=== PATIENT | female | born 1990 | race Caucasian/White ===

== ENCOUNTER 2018-05-08 13:00 | Emergency (ER) | payer BC ==
[~2018-05-08] VITALS: Ht 160 cm; Wt 63.1 kg
[2018-05-08 13:05] VITALS: BP 114/73
[2018-05-08 13:41] LABS: BASOPHILS # (AUTO) 0.07 x10^3/uL (0-0.1); BASOPHILS % (AUTO) 1 % (0-1); EOSINOPHILS # (AUTO) 0.02 x10^3/uL (0-0.4); EOSINOPHILS % (AUTO) 0 % (1-7); LYMPHOCYTES # (AUTO) 1.45 x10^3/uL (1-3.4); LYMPHOCYTES % (AUTO) 16 % (22-44); MD NO; MEAN CORPUSCULAR HEMOGLOBIN 27.1 pg (27.0-34.8); MEAN CORPUSCULAR HGB CONC 33.4 g/dL (32.4-35.8); MEAN CORPUSCULAR VOLUME 81.1 fL (80-100); MEAN PLATELET VOLUME 8.4 fL (7.4-10.4); MONOCYTES # (AUTO) 0.51 x10^3/uL (0.2-0.8); MONOCYTES % (AUTO) 6 % (2-9); NEUTROPHILS % (AUTO) 78 % (42-75); PLATELET COUNT 329 x10^3/uL (130-400); RED BLOOD COUNT 4.52 x10^6/uL (3.82-5.3); RED CELL DISTRIBUTION WIDTH 17.5 % (9.6-15.2)
--- NOTE | 2018-05-08 14:25 | NUR ---
FROM LOBBY TO ROOM AT THIS TIME
--- NOTE | 2018-05-08 15:24 | NUR ---
Patient/Caregiver given discharge instructions and they have confirmed that they understand the instructions. Patient ambulatory with steady gait.
== END 2018-05-08 15:25 | disposition home or self-care (01) ==
LOC: ED 15:00
DX: O02.1 Missed abortion (principal); Z3A.01 Less than 8 weeks gestation of pregnancy
CPT/HCPCS: 36415; 76801; 84702; 85025; 86901; 99284

== ENCOUNTER 2018-05-14 05:56 | Day surgery (SDC) | payer BC ==
[~2018-05-14] VITALS: Ht 157.5 cm; Wt 63.0 kg
[2018-05-14] MEDS ORDERED: OXYTOCIN 10 UNITS/ML, 1ML ONE ×2 (06:38→07:46)
[2018-05-14] MEDS ORDERED: MISOPROSTOL 200 MCG TABLET ONE ×2 (06:38→07:45)
[2018-05-14] MEDS ORDERED: SILVER NITRATE STICK TP ONE ×2 (06:39→07:46)
[2018-05-14] MEDS ORDERED: METHYLERGONOVINE 0.2 MG/ML IM ONE ×2 (06:39→07:46)
[2018-05-14] MEDS ORDERED: DOXYCYCLINE 100MG TABLET PO ONE (07:00)
[2018-05-14 07:05] VITALS: BP 102/68
[2018-05-14] MEDS ORDERED: hydrALAzine 20 MG/ML, 1ML IV PRN (07:30)
[2018-05-14] MEDS ORDERED: MEPERIDINE/PF 25MG/0.5ML IVPush PRN (07:30)
[2018-05-14] MEDS ORDERED: METOPROLOL 1 MG/ML, 5ML IV PRN (07:30)
[2018-05-14] MEDS ORDERED: HYDROmorphone 2 MG/ML, 1ML IVPush PRN (07:30)
[2018-05-14] MEDS ORDERED: FENTANYL PF 100 MCG/2ML IV PRN (07:30)
[2018-05-14] MEDS ORDERED: LABETALOL 5MG/ML, 20ML IV PRN (07:30)
[2018-05-14] MEDS ORDERED: HYDROcodone/APAP 7.5-325MG/15ML UDC PO PRN (07:30)
[2018-05-14] MEDS ORDERED: PROMETHAZINE 25 MG/ML, 1ML IV PRN (07:30)
[2018-05-14] MEDS ORDERED: HALOPERIDOL 5 MG/ML IV PRN (07:30)
[2018-05-14] MEDS ORDERED: PROCHLORPERAZINE 5 MG/ML, 2ML IV PRN (07:30)
[2018-05-14] MEDS ORDERED: DIPHENHYDRAMINE 50 MG/ML, 1ML IVPush PRN (07:30)
[2018-05-14] MEDS ORDERED: FENTANYL PF 100 MCG/2ML ONE (07:50)
[2018-05-14] MEDS ORDERED: KETOROLAC 30 MG/1 ML ONE (07:53)
[2018-05-14] MEDS ORDERED: ONDANSETRON 2MG/ML, 2ML ONE (07:53)
[2018-05-14] MEDS ORDERED: PROPOFOL 10 MG/ML, 20ML ONE (07:53)
[2018-05-14] MEDS ORDERED: DEXAMETHASONE 4 MG/ML, 1ML ONE (07:53)
== END 2018-05-14 10:55 | disposition home or self-care (01) ==
LOC: OUT 05:56
PROVIDERS: ATTEND Student in an Organized Health Care Education/Training Program
DX: O02.1 Missed abortion (principal); G43.909 Migraine, unspecified, not intractable, without status migrainosus; Z98.890 Other specified postprocedural states; Z88.1 Allergy status to other antibiotic agents; Z88.8 Allergy status to other drugs, medicaments and biological substances
CPT/HCPCS: 58301; 59820; 88300; 88305; J1100; J1885; J2210; J2405; J2590; J2704; J3010